=== PATIENT | female | born 1960 | race Caucasian/White ===

== ENCOUNTER 2017-05-15 06:04 | Observation (INO) | payer BC ==
[~2017-05-15 06:04] MED LIST: LIDOCAINE W/ SODIUM BICARB 0.5 ML SYR ONE; Lactated Ringers 1,000 ML PRIMARY IV ONE; ceFAZolin Inj 2gm (Premix) 50 ML IV ONE
[2017-05-15] MEDS ORDERED: Lidocaine Inj 1% 20 ML ONE (07:08)
[2017-05-15] MEDS ORDERED: BUPivacaine Inj 0.5% PF (5mg/ml) 10ml vial ONE (07:08)
[2017-05-15] MEDS ORDERED: MIDAZOLAM 5 MG/1 ML ONE (08:21)
[2017-05-15] MEDS ORDERED: fentaNYL Inj 250 MCG/5 ML VIAL ONE (08:21)
[2017-05-15] MEDS ORDERED: LIDOCAINE 2%/ EPI 1:200,000 - 20 ML VIAL ONE (08:21)
[2017-05-15] MEDS ORDERED: BUPIVACAINE 0.5% W/EPI MPF -30 ML VIAL IV ONE (08:22)
[2017-05-15] MEDS ORDERED: BUPivacaine Liposome/PF (Exparel) Inj 20ml vial INFIL ONE (09:01)
[2017-05-15] MEDS ORDERED: Lactated Ringers 1,000 ML PRIMARY IV ONE (09:55)
--- NOTE | 2017-05-15 10:08 | CRNA.PROCE ---
Nerve Block Documentation - - Safety Measures: Time Out Taken, Site Verified - - Type of Nerve Block Used: Left Popliteal Fossa Block Position for Nerve Block: Prone Moniters Used During Block: EKG, SPO2, NIBP Oxygen Sumpplented: Yes Sedation Used - Enter Amount in Comment Field: Midazolam (mg): Yes (2mg), Fentanyl (mcg): Yes (100mcg) Skin Prep Used: ChloroPrep Technique: Nerve Stimulator Nerve Block Needle Used: 100 mm ProBlk II Local Anesthetic - Enter Amt in Comment Field: 0.5 % Bupivicaine with Epinephrine 1:200,000 (mL): Yes (20ml), 2 % Xylocaine with Epinephrine 1:200, 000 (mL): Yes (20ml)
[2017-05-15] MEDS ORDERED: NORMAL SALINE 10 ML SYRINGE FLUSH IVP PRN (10:18)
--- NOTE | 2017-05-15 10:50 | GEN.OPNOTE ---
Operative Report Surgeon: Randall Carson DPM Anesthesia Type: Regional, MAC Anesthesia Provider: Kannan Hinojosa CRNA Surgery Date: 05/15/17 Preoperative Diagnosis: 1. Left hallux abductovalgus deformity. Postoperative Diagnosis: 1. Left hallux abductovalgus deformity. Procedure: 1. Left long-arm Glenn Freddy bunionectomy. Estimated Blood Loss (mL): 0 (pneumatic cuff used about the left ankle at 250 mmHg pressure for 74 minutes.) Fluids: 1 L lactated Ringer's. 2 g Ancef given preoperative. Complications: None Description of Procedure: The patient was brought to the operating room and placed in the supine position. They had already been given a popliteal block of the lower extremity , and MAC was continued. The foot was prepped and draped in the usual sterile fashion. A timeout was performed. Preoperative radiograph were reviewed and the surgical site marked on the foot. The foot was then exsanguinated with an elastic Esmarch, after which a pneumatic cuff was inflated about the left ankle to 250 mmHg pressure. Utilizing a #15 blade an incision was made over the dorsal medial aspect of the left first metatarsal phalangeal joint, and deepened by sharp and blunt dissection to the level of the joint capsule. A Bovie was used as needed the neurovascular structures were retracted. The joint capsule was incised dorsal- medially in a linear longitudinal fashion, and reflected carefully from the large bunion or dorsal medial exostosis. This is then removed with a sagittal saw. The periosteum was then reflected from the dorsal medial to proximal plantarmedial first metatarsal shaft to make room for the osteotomy. Next a plantar long-arm Glenn type osteotomy was planned for the first metatarsal. A 0.045 K wire was placed from medial to lateral at the neck and head of the first metatarsal and checked with C-arm. An offset 'V' osteotomy was made from medial to laterally using a saw guide and sagittal saw. This was done under C- arm guidance for proper length and positioning. The capital fragment was then displaced laterally to decrease the IM angle. This was then checked again with C-arm. It was then fixated in its corrected position using the [employer] cannulated screw system, and fixating the osteotomy with a 3.516 mm headless cannulated screw. (A 3.5 X 18mm was too long after compression and was explanted). A decrease in the IM angle was noted on radiographs. The first metatarsal head was then modified with a sagittal saw removing prominent corners , and shaping it appropriately. The wounds were copiously irrigated. A capsulorrhaphy was then performed of the first metatarsal phalangeal joint to remove excess medial capsule. To correct the distal articular set angle an Freddy osteotomy was planned for the proximal phalanx. The incision was deepened on the medial aspect of the great toe to the bone of the proximal phalanx. A wedge osteotomy was performed maintaining the lateral cortical hinge, and this was fixated under C-arm with a 12 mm 12 mm Grant[employer]ler Fuse Force bone staple. The wounds irrigated and then subcutaneous tissues were closed with 4-0 Vicryl. Exparel was infiltrated around the first ray for longer postoperative analgesia. The subcutaneous tissues were then closed with 4-0 Vicryl and the skin with 4-0 nylon in a running subcuticular stitch. This was reinforced with Mastisol and Steri-Strips. A dressing was then applied utilizing Xeroform 4 x 4 gauze fluffs , Kerlix and a Coban dressing. The patient tolerated the procedure well, and good reduction of the bunion deformity is noted both radiographically and visually. The patient was then transferred back to the recovery room after having released the pneumatic cuff from the left ankle, it had been up for a total of 74 minutes at 250 mmHg pressure. Plan: Follow-up will be in 1 week. The patient will be kept nonweightbearing on her left foot with the use of crutches.
--- NOTE | 2017-05-15 11:14 | DI ---
XR FOOT COMPLETE MIN 3VW,05/15/2017 10:18 AM: Clinical History: Left hallux valgus Previous Exam: None at this facility. Findings: 3 views of the left foot are obtained, and demonstrate a distal osteotomy involving the left first di stal metatarsal. There is a fixation of a metatarsal osteotomy involving the left first proximal phalanx. The surrounding soft tissues are unremarkable. Impression: Status post left first distal metatarsal osteotomy. Status post left first proximal phalangeal osteotomy.
[2017-05-15] MEDS ORDERED: fentaNYL Inj 100 MCG/2 ML VIAL IVP PRN ×2 (12:32→12:33)
--- NOTE | 2017-05-15 12:37 | PDOC ---
History and Physical - History of Present Illness History of Present Illness: This very nice 56-year-old female who had left bunionectomy this morning and the OR and was asked to admit the patient for pain control under observation. She is allergic to multiple pain meds therefore will start IV fentanyl for her to manage her pain I discussed this with the patient and nursing Past Medical History Medical History: Depression Tobacco Use: Never Smoker Substance Use Type: None Medication / Allergies Home Medications: Home Medications Medication Instructions Recorded Confirmed Type Escitalopram Oxalate [Lexapro] 1 tab PO DAILY tab 07/14/16 05/15/17 History Estradiol 1 tab PO DAILY tab 07/14/16 05/15/17 History Loratadine [Claritin] 1 tab PO DAILY tab 04/27/17 05/15/17 History Rizatriptan Benzoate [Maxalt] 10 mg PO ONCE PRN tab 04/27/17 05/15/17 History Cetirizine HCl [Zyrtec] 5 mg PO DAILY PRN 05/15/17 05/15/17 History Divalproex Sodium [Depakote ER] 250 mg PO DAILY 05/15/17 05/15/17 History Naproxen [Naprosyn] 500 mg PO Q12H #20 tab 05/15/17 Rx Allergies/Adverse Reactions: Allergies Allergy/AdvReac Type Severity Reaction Status Date / Time hydrocodone Allergy ITCHING Unverified 05/15/17 06:25 morphine Allergy HIVES Unverified 05/15/17 06:25 oxycodone Allergy ITCHING Verified 05/15/17 06:25 COEDINE Allergy HIVES Uncoded 05/15/17 06:25 Review of Systems - Respiratory Respiratory: DENIES: Negative System Review, Cough, Sputum, Dyspnea At Rest, Dyspnea with Exertion, Pleuritic Pain, Hemoptysis, Wheezing, Other, See HPI - Cardiovascular Cardiovascular: DENIES: Negative System Review, Chest Pain, Edema, Syncope, Palpitations, Orthopnea, Paroxysmal Nocturnal Dyspnea, Other, See HPI - Gastrointestinal Gastrointestinal / Abdominal: DENIES: Negative System Review, Nausea, Vomiting, Diarrhea, Constipation, Abdominal Pain, Bloody Stool, Poor Appetite, Heartburn, Regurgitation, Bloating, Lactose Intolerance, Melena, Bright Red Blood Per Rectum, Other, See HPI - Musculoskeletal Musculoskeletal: REPORTS: See HPI Exam - Vitals Vital Signs: Vital Signs Temperature 97.5 F Temperature Source Temporal Artery Scan Pulse Rate 79 Respiratory Rate 79 Blood Pressure 116/84 Oxygen Delivery Method Room Air Height 5 ft 6 in Weight 90.265 kg - General General Appearance: POSITIVE: Cooperative - Head Head Exam: POSITIVE: Normal Inspection - Respiratory Respiratory Exam: POSITIVE: Clear to Auscultation - Bilaterally, Breathing Non Labored, Normal To Percussion - Cardiovascular Cardiovascular Exam: POSITIVE: RRR, No Murmur, No Clicks Assessment and Plan - Patient Problems (1) S/P bunionectomy Current Visit: Yes Status: Acute Comment: Fentanyl IV then most likely tramadol by mouth for home patient is doing well continued on her usual meds for depression we will use heparin subcutaneous for anticoagulation
[2017-05-15] MEDS ORDERED: HEPARIN 5000 UNIT/1 ML SUBCUT SCH (12:45)
[2017-05-15] MEDS ORDERED: Non-Formulary Drug (Rizatriptan Benzoate [Maxalt] 10 MG) PO PRN (12:53)
[2017-05-15] MEDS: fentaNYL Inj 100 MCG/2 ML VIAL IVP PRN ×3 (13:28→22:54)
[2017-05-15] MEDS: HEPARIN 5000 UNIT/1 ML IV SCH ×2 (16:13→22:40)
[2017-05-15] MEDS ORDERED: ESCITALOPRAM OXALATE 20 MG PO SCH (21:00)
[2017-05-15] MEDS ORDERED: DIVALPROEX SODIUM 250 MG PO SCH (21:00)
[2017-05-15] MEDS ORDERED: ESTRADIOL 1 MG PO SCH (21:00)
[2017-05-16] MEDS: fentaNYL Inj 100 MCG/2 ML VIAL IVP PRN ×5 (00:01→08:11)
[2017-05-16] MEDS: NORMAL SALINE 10 ML IV PRN ×3 (01:50→05:37)
[2017-05-16] MEDS: HEPARIN 5000 UNIT/1 ML IV SCH (08:11)
[2017-05-16] MEDS ORDERED: LORATADINE 10 MG TABLET PO SCH (09:00)
[2017-05-16 09:38] VITALS: RESP 20; TEMP 98
[2017-05-16] MEDS ORDERED: traMADol 50 MG TABLET PO PRN (10:01)
[2017-05-16] MEDS ORDERED: KETOROLAC 30 MG/1 ML VIAL IVP ONE (11:32)
--- NOTE | 2017-05-16 12:10 | DI ---
HISTORY: Unwitnessed fall to left side. Left hip pain. FINDINGS: Examination reveals no definite evidence of fracture or dislocation. IMPRESSION: 1. No acute osseous abnormalities. Clinical correlation is requested.
--- NOTE | 2017-05-16 12:13 | DI ---
HISTORY: Unwitnessed fall to left side. Left knee pain. FINDINGS: Examination reveals some soft tissue swelling. There are mild degenerative arthritic greene ges. No definite evidence of recent fracture or dislocation is apparent. IMPRESSION: 1. Soft tissue swelling without acute fracture. 2. Mild degenerative arthritic changes.
--- NOTE | 2017-05-16 12:20 | DI ---
HISTORY: Unwitnessed fall to left side. Left shoulder pain. FINDINGS: Examination reveals no definite evidence of fracture or dislocation. IMPRESSION: 1. No acute osseous abnormalities. Clinical correlation is requested.
--- NOTE | 2017-05-16 12:56 | DCSUMMARY ---
Hospitalization Summary Admit Date: 05/15/17 Discharge Date: 05/16/17 Primary Diagnosis:: acute postoperative pain post bunionectomy Hospital Course: This a 56-year-old female that had a bunionectomy done by her technical support technician yesterday, and she developed intractable pain that required fentanyl overnight to control. She was admitted as an observation. She had some depression issues that were managed with her home medications. Those were not exacerbated here and she denied any suicidality or homicidal ideation. She apparently did not have a ride home either, not further complicated her pain situation, but she states to me that she was cleared by her technical support technician to drive home as long as she was nonweightbearing on her left foot. Today, her pain is under a little better control, we stopped fentanyl, and we' ve suggested anti-inflammatories for use at home due to her multiple allergies. We will also prescribed some tramadol to use a short-term basis which can be further prescribed by her technical support technician if desired. She has no complains chest pain, shortness breath, nausea or vomiting, and is eating lunch on my examination. Assessment and Plan: 1. As per discharge assessments noted 2. Disposition: Patient is discharged home. 3. Condition on discharge, stable and improved. 4. Diet: regular diet 5. Activities: Nonweightbearing left foot. Do not get left foot wet. May bathe if it's covered in plastic of some kind. 6. Follow-Up: 1. See primary care provider, Dr. Cabrera in [address] Carson in 7 days 7. Medications at the Time of Discharge: Home Medications Medication Instructions Recorded Confirmed Type Escitalopram Oxalate [Lexapro] 1 tab PO DAILY tab 07/14/16 05/15/17 History Estradiol 1 tab PO DAILY tab 07/14/16 05/15/17 History Loratadine [Claritin] 1 tab PO DAILY tab 04/27/17 05/15/17 History Rizatriptan Benzoate [Maxalt] 10 mg PO ONCE PRN tab 04/27/17 05/15/17 History Cetirizine HCl [Zyrtec] 5 mg PO DAILY PRN 05/15/17 05/15/17 History Divalproex Sodium [Depakote ER] 250 mg PO DAILY 06/23/17 06/23/17 History Naproxen [Naprosyn] 500 mg PO Q12H #20 tab 05/15/17 Rx Tramadol HCl 50 mg PO Q4H PRN #20 tab 05/16/17 Rx 8. Time, care, counseling and coordination of care for this discharge is greater than 30 minutes. Exam - Vitals Vital Signs: Vital Signs Temperature 98.0 F Temperature Source Temporal Artery Scan Pulse Rate [Pulse Oximeter] 88 Pulse Rate 79 Respiratory Rate 20 Blood Pressure [Left Arm] 108/68 Blood Pressure 119/80 Pulse Ox 95 Oxygen Delivery Method Room Air Height 5 ft 6 in Weight 203 lb 6.4 oz - General General Appearance: POSITIVE: No Acute Distress, Cooperative - Respiratory Respiratory Exam: POSITIVE: Clear to Auscultation - Bilaterally, Breathing Non Labored - Cardiovascular Cardiovascular Exam: POSITIVE: RRR, No Murmur, No Clicks, No Gallops, No Rubs - GI/Abdominal GI/Abdominal Exam: POSITIVE: Normal Bowel Sounds, Non Tender, Non Distended, Soft - Extremities Extremities Exam: POSITIVE: No Clubbing Present, No Edema Present, No Cyanosis Present Additional Extremities Exam Details: left foot with dressing, clean, dry, intact. - Neurological Neurological Exam: POSITIVE: Alert, Oriented x 3, No Facial Droop, Speech Intact / Clear, Moves All Extremities Equally - Psychiatric Psychiatric Exam: POSITIVE: Depressed Data Perinent Studies: No labs during the hospital stay. Patient Problems - Patient Problem List (1) Postoperative pain Current Visit: Yes Status: Acute (2) S/P bunionectomy Current Visit: Yes Status: Acute (3) Depression Current Visit: Yes Status: Acute Qualifiers: Depression Type: major depressive disorder Major depression recurrence : recurrent Active/Remission status: currently active Major depression episode severity: unspecified Qualified Description: Episode of recurrent major depressive disorder, unspecified depression episode severity Qualifier Code(s): (F33.9) Major depressive disorder, recurrent, unspecified
[2017-05-16] MEDS ORDERED: ESCITALOPRAM OXALATE 20 MG PO SCH (21:00)
[2017-05-16] MEDS ORDERED: ESTRADIOL 1 MG PO SCH (21:00)
[2017-05-16] MEDS ORDERED: DIVALPROEX SODIUM 250 MG PO SCH (21:00)
== END 2017-05-16 13:12 | disposition home or self-care (01) ==
LOC: SDSC 06:04 → MED/SURG 11:53 → UNDOADMOB 12:23
PROVIDERS: ADMIT Internal Medicine; ATTEND Internal Medicine
DX: M20.12 Hallux valgus (acquired), left foot (principal); M21.612 Bunion of left foot; M79.672 Pain in left foot; G89.18 Other acute postprocedural pain
CPT/HCPCS: 28299; 73030; 73502; 73560; 73630; 76000; 96374; 96375; 96376; A4216; C9290; J0690; J1885; J2704; J3010 ×3; S0020; J1644; J2001; J2250; J3490; J7120